=== PATIENT | female | born 1965 | race Caucasian/White ===

== ENCOUNTER 2017-04-13 11:10 | Inpatient (IN) ==
[2017-04-13] MEDS ORDERED: NALOXONE 0.4 MG/ML VIAL IV PRN (11:19)
[2017-04-13] MEDS ORDERED: MORPHINE 2 MG/1 ML SYRINGE IV PRN (11:19)
[2017-04-13] MEDS ORDERED: ACETAMINOPHEN 325 MG TABLET PO PRN (11:19)
[2017-04-13] MEDS ORDERED: SODIUM CHLORIDE 0.9% 1,000 ML IV ONE (11:24)
[2017-04-13 14:25] LABS: Basophils # 0.1 10*3/uL (0.0-0.2); Basophils % 0.7 % (0.0-0.8); Eosinophils # 0.2 10*3/uL (0.0-0.87); Eosinophils % 1.9 % (0.00-10.9); Hematocrit 47.8 VOL% (35.7-47.0); Hemoglobin 15.6 GM/DL (12.0-16.0); Immature Granulocytes % 0.6 %; Immature Granulocytes Absolute 0.07 #; Lymphocytes # 3.5 10*3/uL (1.4-4.0); Lymphocytes % 28.5 % (21.3-54.2); Mean Corpuscular HGB Conc 32.6 GM/DL (32-36); Mean Corpuscular Hemoglobin 30 PG (27-34); Mean Corpuscular Volume 90.5 FL (87-102); Mean Platelet Volume 11.5 FL (9.6-12.0); Monocytes # 0.7 10*3/uL (0.11-0.8); Monocytes % 5.8 % (1.7-12.7); Neutrophils # 7.6 10*3/uL (1.4-7.4); Neutrophils % 62.5 % (38.7-73.9); Platelet Count 192 T/CUMM (130-400); Red Blood Count 5.28 MC/CUMM (3.8-5.5); Red Cell Distribution Width 12.4 % (9.3-17.3); White Blood Count 12.1 T/CUMM (4-12)
[2017-04-13 14:46] LABS: Lactic Acid 1.6 MMOL/L (0.4-2.0)
[2017-04-13 14:53] LABS: Albumin 3.4 G/DL (3.4-5.0); Bilirubin,Total 0.6 MG/DL (0.2-1.0); Calcium 8.4 MG/DL (8.5-10.1); Potassium 3.8 MMOL/L (3.5-5.1); Total Protein 7.2 G/DL (6.4-8.3)
[2017-04-13 16:11] LABS: Apearance,Urine CLEAR (Clear); Bilirubin,Urine Negative (Negative); Blood, Urine Negative (Negative); Glucose,Urine (UA) >=500 mg/dL (Negative); Ketones,Urine Negative (Negative); Mucus,Urine Occasional /LPF (Occasional); Nitrite,Urine Negative (Negative); Protein,Urine 30 MG/DL; RBC,Urine 1 /HPF (0-4); Squamous Epithelial Cell,Urine Occasional /HPF (0-10); Urine Color Yellow (Yellow); Urine Specific Gravity 1.025 (1.001-1.035); Urine Urobilinogen < 2.0 EU/DL (0.2-1.0); WBC,Urine 5 /HPF (0-6)
[2017-04-13] MEDS: metroNIDAZOLE INJ 500 MG in PREMIX 1 EACH IV SCH ×2 (17:15→21:41)
[2017-04-13] MEDS: ENOXAPARIN 40 MG/0.4 ML SYRINGE SUBCUT SCH (17:15)
[2017-04-13] MEDS: SODIUM CHLORIDE 0.9% 1,000 ML IV SCH ×2 (17:15→22:48)
[2017-04-13] MEDS: ONDANSETRON 4 MG/2 ML VIAL IV PRN ×2 (17:27→22:40)
[2017-04-13] MEDS: MORPHINE 10 MG/1 ML VIAL IV PRN ×2 (17:28→22:14)
[2017-04-13] MEDS: LEVOFLOXACIN INJ 500 MG in PREMIX 1 EACH IV SCH (19:16)
[2017-04-13] MEDS: DOCUSATE SODIUM 100 MG CAPSULE PO SCH (20:50)
[2017-04-14] MEDS: MORPHINE 10 MG/1 ML VIAL IV PRN ×4 (04:27→23:50)
[2017-04-14] MEDS: SODIUM CHLORIDE 0.9% 1,000 ML IV SCH ×3 (04:29→21:41)
[2017-04-14] MEDS: metroNIDAZOLE INJ 500 MG in PREMIX 1 EACH IV SCH ×3 (05:05→21:38)
[2017-04-14] MEDS ORDERED: clonazePAM 0.5 MG TABLET PO PRN (07:58)
[2017-04-14] MEDS ORDERED: GLUCAGON 1 MG VIAL IM PRN ×2 (07:59→08:00)
[2017-04-14] MEDS ORDERED: DEXTROSE 50% 25 GM/50 ML VIAL IV PRN ×2 (07:59→08:00)
[2017-04-14] MEDS ORDERED: OMALIZUMAB 150 MG VIAL SUBCUT SCH (08:00)
[2017-04-14] MEDS: DOCUSATE SODIUM 100 MG CAPSULE PO SCH ×2 (10:18→21:31)
[2017-04-14] MEDS: GABAPENTIN 300 MG CAPSULE PO SCH ×3 (10:18→21:31)
[2017-04-14] MEDS: PANTOPRAZOLE 40 MG VIAL IV SCH (10:18)
[2017-04-14] MEDS: INSULIN LISPRO 100 UNIT/ML SUBCUT SCH ×3 (12:01→21:32)
[2017-04-14] MEDS: ENOXAPARIN 40 MG/0.4 ML SYRINGE SUBCUT SCH (13:47)
[2017-04-14] MEDS: ONDANSETRON 4 MG/2 ML VIAL IV PRN (17:07)
[2017-04-14] MEDS: LEVOFLOXACIN INJ 500 MG in PREMIX 1 EACH IV SCH (18:39)
[2017-04-14] MEDS ORDERED: INSULIN DEGLUDEC 60 UNIT SUBCUT SCH (21:00)
[2017-04-14] MEDS ORDERED: DAPAGLIFLOZIN PO SCH (21:00)
[2017-04-14] MEDS ORDERED: METFORMIN HCL PO SCH (21:00)
[2017-04-14] MEDS: QUEtiapine 25 MG TABLET PO SCH (21:31)
[2017-04-14] MEDS: AMITRIPTYLINE 50 MG TABLET PO SCH (21:31)
[2017-04-14] MEDS: ROPINIROLE 2 MG PO SCH (21:40)
[2017-04-15] MEDS: SODIUM CHLORIDE 0.9% 1,000 ML IV SCH ×3 (04:52→23:23)
[2017-04-15 06:06] LABS: Basophils # 0.1 10*3/uL (0.0-0.2); Basophils % 1.1 % (0.0-0.8); Eosinophils # 0.3 10*3/uL (0.0-0.87); Eosinophils % 3.8 % (0.00-10.9); Hematocrit 41.2 VOL% (35.7-47.0); Hemoglobin 13.2 GM/DL (12.0-16.0); Immature Granulocytes % 0.3 %; Immature Granulocytes Absolute 0.02 #; Lymphocytes # 2.2 10*3/uL (1.4-4.0); Lymphocytes % 32.7 % (21.3-54.2); Mean Corpuscular Hemoglobin 30 PG (27-34); Mean Corpuscular Volume 92.4 FL (87-102); Mean Platelet Volume 11.7 FL (9.6-12.0); Monocytes # 0.6 10*3/uL (0.11-0.8); Neutrophils # 3.5 10*3/uL (1.4-7.4); Neutrophils % 53.1 % (38.7-73.9); Platelet Count 134 T/CUMM (130-400); Red Blood Count 4.46 MC/CUMM (3.8-5.5); Red Cell Distribution Width 12.3 % (9.3-17.3); White Blood Count 6.6 T/CUMM (4-12)
[2017-04-15] MEDS: metroNIDAZOLE INJ 500 MG in PREMIX 1 EACH IV SCH ×3 (06:15→21:24)
[2017-04-15 07:19] LABS: Basophils # 0.1 10*3/uL (0.0-0.2); Basophils % 0.9 % (0.0-0.8); Eosinophils # 0.2 10*3/uL (0.0-0.87); Eosinophils % 3.3 % (0.00-10.9); Hematocrit 42.7 VOL% (35.7-47.0); Hemoglobin 13.6 GM/DL (12.0-16.0); Immature Granulocytes % 0.3 %; Immature Granulocytes Absolute 0.02 #; Lymphocytes # 1.8 10*3/uL (1.4-4.0); Lymphocytes % 26.7 % (21.3-54.2); Mean Corpuscular HGB Conc 31.9 GM/DL (32-36); Mean Corpuscular Hemoglobin 29 PG (27-34); Mean Corpuscular Volume 92.2 FL (87-102); Mean Platelet Volume 11.1 FL (9.6-12.0); Monocytes # 0.5 10*3/uL (0.11-0.8); Monocytes % 7.7 % (1.7-12.7); Neutrophils % 61.1 % (38.7-73.9); Platelet Count 138 T/CUMM (130-400); Red Blood Count 4.63 MC/CUMM (3.8-5.5); Red Cell Distribution Width 12.3 % (9.3-17.3); White Blood Count 6.6 T/CUMM (4-12)
[2017-04-15] MEDS: INSULIN LISPRO 100 UNIT/ML SUBCUT SCH ×4 (07:45→21:35)
[2017-04-15 07:54] LABS: Albumin 2.8 G/DL (3.4-5.0); Bilirubin,Direct 0.16 MG/DL (0.0-0.20); Bilirubin,Indirect 0.3 MG/DL (0.0-1.0); Bilirubin,Total 0.5 MG/DL (0.2-1.0)
[2017-04-15] MEDS: GABAPENTIN 300 MG CAPSULE PO SCH ×3 (08:53→21:29)
[2017-04-15] MEDS: DOCUSATE SODIUM 100 MG CAPSULE PO SCH ×2 (08:53→20:52)
[2017-04-15] MEDS: PANTOPRAZOLE 40 MG VIAL IV SCH (08:55)
[2017-04-15] MEDS: MORPHINE 10 MG/1 ML VIAL IV PRN ×4 (08:58→23:18)
[2017-04-15] MEDS: ENOXAPARIN 40 MG/0.4 ML SYRINGE SUBCUT SCH (13:19)
[2017-04-15] MEDS ORDERED: PSEUDOEPHEDRINE 30 MG TABLET PO PRN (18:08)
[2017-04-15] MEDS ORDERED: FLUCONAZOLE 100 MG TABLET PO ONE (18:11)
[2017-04-15] MEDS: LEVOFLOXACIN INJ 500 MG in PREMIX 1 EACH IV SCH ×2 (19:05→23:20)
[2017-04-15] MEDS: AMITRIPTYLINE 50 MG TABLET PO SCH (21:29)
[2017-04-15] MEDS: QUEtiapine 25 MG TABLET PO SCH (21:29)
[2017-04-15] MEDS: ROPINIROLE 2 MG PO SCH (21:29)
[2017-04-16] MEDS: metroNIDAZOLE INJ 500 MG in PREMIX 1 EACH IV SCH (05:33)
[2017-04-16] MEDS: SODIUM CHLORIDE 0.9% 1,000 ML IV SCH (05:34)
[2017-04-16 05:56] LABS: % Iron Saturation 19.3 % (18-50)
[2017-04-16 07:45] VITALS: BP 131/78
[2017-04-16] MEDS: PANTOPRAZOLE 40 MG VIAL IV SCH (08:55)
[2017-04-16] MEDS: GABAPENTIN 300 MG CAPSULE PO SCH (08:55)
[2017-04-16] MEDS: INSULIN LISPRO 100 UNIT/ML SUBCUT SCH (08:55)
[2017-04-16] MEDS: DOCUSATE SODIUM 100 MG CAPSULE PO SCH (08:57)
[2017-04-19 17:37] LABS: Hepatitis A Ab IgM Quant 0.05 Index; Hepatitis A Ab IgM Result Negative (Negative); Hepatitis B Core IgM Quant 0.05 Index; Hepatitis B Core IgM Result Negative (Negative); Hepatitis B Surface Ag Quant < 0.10 Index; Hepatitis B Surface Ag Result Negative (Negative); Hepatitis C Virus Ab Quant 0.03 Index; Hepatitis C Virus Ab Result Negative (Negative)
== END 2017-04-16 11:00 | disposition home or self-care (01) | DRG 392 ==
LOC: N.3E 13:23
PROVIDERS: ADMIT Family Medicine; ATTEND Family Medicine